=== PATIENT | male | born 1945 | race Caucasian/White ===

== ENCOUNTER 2018-12-09 12:20 | Emergency (ER) | payer OTHER | END 2018-12-09 14:28 | disposition left against medical advice (07) | LOC: ER 12:21 | DX: I10 Essential (primary) hypertension (principal); Z53.21 Procedure and treatment not carried out due to patient leaving prior to being seen by health care provider ==

== ENCOUNTER 2023-05-19 07:30 | Inpatient (IN) | payer OTHER ==
[2023-05-13 14:53] LABS: BASOPHILS % (AUTO) 0.4 % (0-1); EOSINOPHILS # (AUTO) 0.2 X10'3 (0-0.9); EOSINOPHILS % (AUTO) 2.8 % (0-6); MEAN CORPUSCULAR HEMOGLOBIN 31.4 PG (27.0-31.0); MEAN CORPUSCULAR HGB CONC 33.3 g/dL (33.0-36.5); MEAN CORPUSCULAR VOLUME 94.4 FL (78-98); MONOCYTES # (AUTO) 0.6 X10'3 (0-0.9); MONOCYTES % (AUTO) 9.9 % (2-12); NEUTROPHILS # (AUTO) 4.7 X10'3 (1.8-7.7); NEUTROPHILS % (AUTO) 70.9 % (42-75); PRE OP HEMATOCRIT 37.6 % (42.0-52.0); PRE OP HEMOGLOBIN 12.5 g/dL (14.0-17.9); PRE OP PLATELET COUNT 212 X10'3 (140-440); RED BLOOD COUNT 3.99 X10'6 (4.70-6.10); RED CELL DISTRIBUTION WIDTH 13.2 % (11.5-14.5)
[2023-05-13 15:01] LABS: ALBUMIN/GLOBULIN RATIO 1.4 (1.1-1.5); ALKALINE PHOSPHATASE 60 IU/L (46-116); BLOOD UREA NITROGEN 30 MG/DL (7-18); BUN/CREATININE RATIO 30.9 (10.0-20.0); CALCIUM 8.5 MG/DL (8.5-10.1); CHLORIDE 100 MMOL/L (99-107); CREATININE 0.97 MG/DL (0.60-1.10); PRE OP ALT 29 U/L (30-65); PRE OP ANION GAP 6 (8-16); PRE OP AST 15 U/L (10-37); PRE OP BILIRUB, TOTAL 0.4 MG/DL (0.0-1.0); PRE OP GLUCOSE 116 MG/DL (70-104); PRE OP POTASSIUM 4.4 MMOL/L (3.4-5.1); PRE OP SODIUM 134 MMOL/L (135-145); TOTAL CARBON DIOXIDE 27.6 MMOL/L (24-32); TOTAL PROTEIN 6.8 G/DL (6.4-8.2); eGFR 75 ML/MIN
[~2023-05-19] VITALS: Ht 172.7 cm; Wt 85.8 kg
[2023-05-19] VITALS (28 sets, daily range): BP systolic 104–139; BP diastolic 56–78
[~2023-05-19 07:30] MED LIST: ACET-1059 PO; IRBE1TAB33 PO; NAPR-1166 PO; OMEP20CA16 PO; TIZA4CAP PO; cefazolin 2gm/D5W 100mL 100 ML IV ONE; famotidine 20mg tablet PO ONE; ringers solution, lacted 1,000 ML IV SCH; tranexamic acid 650mg tablet PO ONE; vancomycin 1,500 MG in NS 300ml IV soln IV ONE
[2023-05-19] MEDS ORDERED: proCHLORperazine 10 MG/2 ml inj IV PRN (08:35)
[2023-05-19] MEDS ORDERED: ondansetron/PF 4mg/2ml inj IV PRN ×2 (08:35→12:10)
[2023-05-19] MEDS ORDERED: ringers solution, lacted 1,000 ML IV SCH (08:35)
[2023-05-19] MEDS ORDERED: morphine 4 MG/ML inj SYRINge IV PRN (08:35)
[2023-05-19] MEDS ORDERED: morphine 2 MG/ML inj. syringe IV PRN (08:35)
[2023-05-19] MEDS ORDERED: meperidine/PF 25mg/ml syringe IV PRN ×3 (08:35)
[2023-05-19] MEDS ORDERED: ketorolac trometh. 30mg/ml inj. ONE (09:19)
[2023-05-19] MEDS ORDERED: ROPIVAcaine 0.5% (5mg/ml) 30ml vial ONE ×2 (09:19→09:49)
[2023-05-19] MEDS ORDERED: propofol inj 20 ML IV ONE (09:50)
[2023-05-19] MEDS ORDERED: LIDOcaine 1%/PF 5ML 10 MG/ML VIAL ONE (09:50)
[2023-05-19] MEDS ORDERED: midazolam 1 mg/ML 2ml injection ONE (09:51)
[2023-05-19] MEDS ORDERED: fentaNYL/PF 50MCG/1 ML 2ML syringe ONE (09:51)
--- NOTE | 2023-05-19 10:00 | NUR ---
CMS NOTE: PT STATES HE SHOWERED X5 DAYS WITH HIBICLENS AND APPLIED MUPIROCIN OINTMENT TO NARES X5 DAYS. PT RECENTLY HAD LEFT TSA AND DID NOT FE3EL Addendum: 05/19/23 at 1133 by Sienna Sommers RN FEEL THE NEED TO WATCH VIDEO OR MAUREEN BOOKLET.
[2023-05-19] MEDS ORDERED: ondansetron/PF 4mg/2ml inj ONE (10:17)
[2023-05-19] MEDS ORDERED: sevoflurane 250ml liquid IH ONE (10:17)
[2023-05-19] MEDS ORDERED: dexamethasone sod phosphate 10mg/ml inj ONE (10:17)
[2023-05-19] MEDS ORDERED: ROPIVAcaine 0.2% (10 MG/5 ML) BOLUS INJECTION INTERSCALE PRN (11:25)
[2023-05-19] MEDS ORDERED: HYDROmorphone 1 mg/ml syringe IV PRN (12:10)
[2023-05-19] MEDS ORDERED: naproxen 375mg tablet PO PRN (12:10)
[2023-05-19] MEDS ORDERED: HYDROmorphone inj. 0.5 MG/0.5 ML DISP.SYRIN IV PRN (12:10)
[2023-05-19] MEDS ORDERED: bisacodyl 10mg suppository rectal RC PRN (12:10)
[2023-05-19] MEDS ORDERED: magnesium hydroxide 30ml (MOM) UD suspension PO PRN (12:10)
[2023-05-19] MEDS ORDERED: acetaminophen w/codeine (30MG) #3 tablet PO PRN (12:10)
[2023-05-19] MEDS ORDERED: naloxone 0.4 mg/ml inj IV PRN (12:10)
[2023-05-19] MEDS ORDERED: HYDROcodone/acetaminophen 10/325mg tab PO PRN ×2 (12:10)
[2023-05-19] MEDS ORDERED: diphenhydrAMINE 25mg capsule PO PRN ×2 (12:10)
[2023-05-19] MEDS ORDERED: acetaminophen 325mg tablet PO PRN (12:10)
[2023-05-19] MEDS ORDERED: oxyCODONE IR 5mg (immed. release) tablet PO PRN (12:10)
[2023-05-19] MEDS ORDERED: tizanidine 4mg tablet PO PRN (12:10)
[2023-05-19] MEDS ORDERED: pantoprazole 40mg Tablet.DR PO PRN (12:10)
--- NOTE | 2023-05-19 12:15 | NUR ---
Received from OR via BED, accompanied by Anesthesiologist TOSHIA and report given by Anesthesiolgist. PT ROUSES EASILY; SA02 1000% ON 6 LPM PER MASK. R SHOULDER DRESSING IN PLACE, WITH SMALL SANGUINOUS DRAINAGE; ICE APPLIED TO SHOULDER; DENIES PAIN - WILL CONTINUE TO MONITOR. ABLE TO MOVE FINGERS OF R HAND - REGIONAL BLOCK WAS GIVEN; IV TO L FA [address] S JENNY Addendum: 05/19/23 at 1242 by Giuliana Wolf RN Amended: Links added.
[2023-05-19] MEDS: ROPIVAcaine 0.2%/PF PUMP/bolus 545 ML INTERSCALE SCH ×2 (13:40→14:06)
--- NOTE | 2023-05-19 15:25 | NUR ---
PATIENT TAKEN TO ROOM [facility] WITH ALL BELONGINGS AND HOOKED UP TO MONITORS IN ROOM AND GIVEN CALL LIGHT, REPORT GIVEN TO KHALIDA ANDINO WHO HAS TAKEN OVER PATIENT CARE. Addendum: 05/19/23 at 1543 by Giuliana Wolf RN Amended: Links added.
[2023-05-19] MEDS: gabapentin 300mg capsule PO SCH ×2 (16:43→21:01)
[2023-05-19] MEDS: acetaminophen 325mg tablet PO SCH ×2 (16:44→21:01)
[2023-05-19] MEDS: potassium cl 20mEq in 1/2 NS 1,000 ML IV SCH ×2 (16:44→17:58)
[2023-05-19] MEDS: ceFAZolin/D5W- 1GM premix 50 ML IV SCH (18:00)
--- NOTE | 2023-05-19 18:00 | NUR ---
I have reviewed and agree with interventions, assessments, and documentation by Connie Cuellar LVN.
--- NOTE | 2023-05-19 18:39 | NUR ---
Patient in room ORTHO 4014. I have received report from LIBIA Valdez and had the opportunity to ask questions and assume patient care.
[2023-05-19] MEDS ORDERED: vancomycin/NS 1 GM ADD-VANTAGE 250 ML IV SCH (20:00)
[2023-05-19] MEDS ORDERED: sennosides 8.6mg tablet PO SCH (21:00)
[2023-05-20] MEDS: ceFAZolin/D5W- 1GM premix 50 ML IV SCH (00:01)
[2023-05-20] MEDS: acetaminophen 325mg tablet PO SCH ×2 (02:03→07:43)
[2023-05-20 02:19] VITALS: BP 120/67
[2023-05-20] MEDS: potassium cl 20mEq in 1/2 NS 1,000 ML IV SCH (03:34)
[2023-05-20 06:00] VITALS: BP 128/83
--- NOTE | 2023-05-20 06:51 | NUR ---
Problems reprioritized. Patient report given, questions answered & plan of care reviewed with SINA Casey.
--- NOTE | 2023-05-20 07:00 | NUR ---
Patient in room ORTHO 4014. I have received report from KELI REZA and had the opportunity to ask questions and assume patient care.
[2023-05-20 07:02] LABS: BASOPHILS % (AUTO) 0.1 % (0-1); EOSINOPHILS % (AUTO) 0 % (0-6); HEMOGLOBIN 11.1 g/dl (14.0-17.9); LYMPHOCYTES # (AUTO) 0.8 X10'3 (1.1-4.8); LYMPHOCYTES % (AUTO) 7.3 % (21-51); MEAN CORPUSCULAR HEMOGLOBIN 31.9 PG (27.0-31.0); MEAN CORPUSCULAR HGB CONC 33.6 g/dL (33.0-36.5); MEAN PLATELET VOLUME 8.1 FL (7.4-10.4); MONOCYTES # (AUTO) 1.2 X10'3 (0-0.9); MONOCYTES % (AUTO) 10.5 % (2-12); NEUTROPHILS # (AUTO) 9.5 X10'3 (1.8-7.7); NEUTROPHILS % (AUTO) 82.1 % (42-75); PLATELET COUNT 184 X10'3 (140-440); RED BLOOD COUNT 3.47 X10'6 (4.70-6.10); RED CELL DISTRIBUTION WIDTH 13.5 % (11.5-14.5); WHITE BLOOD COUNT 11.5 X10'3 (4.5-11.0)
--- NOTE | 2023-05-20 07:04 | NUR ---
SALES AND MARKETING ANALYST documentation: I have reviewed and agree with all interventions, assessments performed and documented by Elvira.
[2023-05-20 07:13] LABS: ANION GAP 9 (8-16); CHLORIDE 100 MMOL/L (99-107); POTASSIUM 4.4 MMOL/L (3.5-5.1); SODIUM 133 MMOL/L (135-145); TOTAL CARBON DIOXIDE 24.1 MMOL/L (24-32)
[2023-05-20] MEDS: gabapentin 300mg capsule PO SCH (07:42)
[2023-05-20] MEDS ORDERED: HYDROchlorothiazide 12.5mg capsule PO SCH (08:00)
[2023-05-20] MEDS ORDERED: losartan 50mg tablet PO SCH (08:00)
[2023-05-20] MEDS ORDERED: aspirin 325mg tablet PO SCH (08:30)
[2023-05-20 10:00] VITALS: BP 126/63
--- NOTE | 2023-05-20 12:42 | NUR ---
Joint surgery consult: Pt s/p R shoulder surgery this admit per EMR. Pt/SO seen by RD at bedside for written/verbal high protein diet ed w/ RD contact information provided. RD encouraged pt/SO to contact dietitian's office if further nutrition questions/concerns. Addendum: 05/20/23 at [address] Amended: Links added.
--- NOTE | 2023-05-20 15:30 | NUR ---
PT DISCHARGED IN STABLE CONDITION IN PRIVATE VEHICLE. IV DC [facility]ULA INTACT. FOLLOW UP INSTRUCTIONS GIVEN, ALL QUESTIONS ANSWERED. ALL BELONGINGS IN HAND. Addendum: 05/20/23 at 1600 by Sol Browning RN Amended: Links added.
== END 2023-05-20 13:30 | disposition home or self-care (01) | DRG 483 ==
LOC: UNDOADMIN 07:30 → PAS IN 07:30 → ORTHO 4S 15:36
PROVIDERS: ADMIT Orthopaedic Surgery; ATTEND Orthopaedic Surgery
PROC: 0LS30ZZ Reposition Right Upper Arm Tendon, Open Approach (ICD-10-PCS; 2023-05-19)
PROC: 0DH63UZ Insertion of Feeding Device into Stomach, Percutaneous Approach (ICD-10-PCS; 2023-05-19)
PROC: 3E0T3BZ Introduction of Anesthetic Agent into Peripheral Nerves and Plexi, Percutaneous Approach (ICD-10-PCS; 2023-05-19)
PROC: 3E0T33Z Introduction of Anti-inflammatory into Peripheral Nerves and Plexi, Percutaneous Approach (ICD-10-PCS; 2023-05-19)
PROC: 0RRJ00Z Replacement of Right Shoulder Joint with Reverse Ball and Socket Synthetic Substitute, Open Approach (ICD-10-PCS; principal; 2023-05-19 10:17)
DX: M75.121 Complete rotator cuff tear or rupture of right shoulder, not specified as traumatic (principal); M19.011 Primary osteoarthritis, right shoulder; M65.9 Synovitis and tenosynovitis, unspecified
CPT/HCPCS: 36415; 80051; 80053; 82948; 85025; 87081; 97110; 97161; 97530; A4565; A4618; A7000; C1776; G0378; J0690; J1100; J1885; J2250; J2405; J2704; J2795; J3010; J3370; J3480; J3490; J7120